=== PATIENT | female | born 1980 | race Caucasian/White ===

== ENCOUNTER 2023-10-07 19:16 | Inpatient (IN) | payer BC, SELFPAY ==
[2023-10-07] VITALS (15 sets, daily range): BP systolic 141–195; BP diastolic 81–112; BMI 24.2; BMI 23.6
[2023-10-07 10:56] LABS: % Basophils 0.6 % (0-2); % Eosinophils 0.3 % (0-6); % Immature Granulocytes 0.3 % (0-0.5); % Lymphocytes 26.3 % (20.5-51.1); % Neutrophils 67.5 % (42.2-75.2); Absolute Lymphocytes 1.7 10^3/uL (1.2-3.4); Absolute Monocytes 0.3 10^3/uL (0.1-0.6); Absolute Neutrophils 4.3 10^3/uL (1.4-6.5); Hematocrit 40.1 % (37.0-47.0); Hemoglobin 14.2 g/dL (12.0-16.0); Mean Corp Hgb Conc. 35.4 g/dL (33.0-37.0); Mean Corpuscular Hgb 29.8 pg (27.0-31.0); Mean Corpuscular Volume 84.2 fL (81.0-99.0); Mean Platelet Volume 10.9 fL (7.4-10.4); Nucleated Red Blood Cells % 0 %; Platelet Count 326 10^3/uL (130-400); Red Blood Cell Count 4.76 10^6/uL (4.20-5.40); Red Cell Dist. Width 12.8 % (11.5-14.5); White Blood Cell Count 6.4 10^3/uL (4.8-10.8)
[2023-10-07 11:13] LABS: ALT (SGPT) 22 U/L (0-35); AST (SGOT) 31 U/L (14-36); Albumin 4.6 g/dl (3.5-5.0); Alkaline Phosphatase 82 U/L (38-126); Blood Urea Nitrogen 22 mg/dl (7-17); Calcium 9.4 mg/dl (8.4-10.2); Carbon Dioxide 21 mmol/L (22-30); Chloride 105 mmol/L (98-107); Glucose 119 mg/dl (70-99); Potassium 3.3 mmol/L (3.5-5.1); Sodium 137 mmol/L (135-145); Total Bilirubin 0.6 mg/dl (0.2-1.3); Total Protein 7.5 g/dl (6.3-8.2); eGFR > 60.00
[2023-10-07 11:24] LABS: Troponin I < 0.012 ng/ml
--- NOTE | 2023-10-07 11:57 | ED.GENMED ---
History of Present Illness
<Yamila Montiel PA-C - Last Filed: 10/07/23 19:11>
General
Chief Complaint: Chest Pain
Source: patient
Exam Limitations: none
Time Seen by Provider: 10/07/23 11:35
Nursing documentation reviewed up to this point in time: agreed with
Travel History
Have you had any contact with someone who has COVID-19?: No
Do you have any symptoms of coronavirus? Fever > 100 degrees, chills, cough, shortness of breath, sore throat, loss of taste or smell, muscle aches, or headache?: No
History of Present Illness
History of Present Illness:
Patient is a 43-year-old female with history hypertension presenting via EMS following episode of substernal chest pain earlier today. Patient was leaving gym after a typical HIT workout around 945 when she noticed severe substernal chest pain with
associated lightheadedness. Patient did not have any chest pain during exercise. She then went into the pharmacy to slate picker a prescription when she became nauseous, sweaty, and describes a near syncopal event. She was able to sit down and felt
better after a few minutes. EMS was called where she received 325mg aspirin in route to hospital. She currently endorses a dull pressure substernally not as severe as episode earlier. No current shortness of breath, back pain,
dizziness/lightheadedness, visual changes, or back pain. Pain is nonpleuritic and nonradiating.
Patient takes amlodipine 5 mg daily for hypertension. She does not check her blood pressures regularly at home.
Patient exercises regularly.
She has a very strong family history of cardiac problems with her brother having a heart attack at the age of 33. Her father and grandfather also suffered cardiac events
Phy Exam
<Yamila Montiel PA-C - Last Filed: 10/07/23 19:11>
Physical Exam
Physical Exam:
General: Somewhat anxious appearing and non-toxic
Vitals: Hypertensive, otherwise stable
HEENT: Atraumatic, normocephalic; pupils equal round reactive to light bilaterally, extraocular muscles intact protecting airway
Neck: appears supple, no jugular venous distention
CV: Regular rate and rhythm, heart sound normal, No evidence of cyanosis
Resp: No evidence of respiratory distress, lungs clear, no accessory muscle use
Abd: Soft, nontender, non-distended
Extremities: No deformities, no evidence fo cyanosis or edema, DP pulses 2+ bilaterally
Neuro: alert and oriented, speech normal, no focal neurological deficits
Psych: Normal affect
Skin: Intact, no rashes
Scores
<Yamila Montiel PA-C - Last Filed: 10/07/23 19:11>
Heart Score for Chest Pain Patients
STEMI patient?: No
History: Moderately Suspicious
ECG: Nonspecific Repolarization
Age: </= 45 years
Risk Factors: 1 or 2 Risk Factors
Troponin: </= Normal Limit
Heart Score for Chest Pain Patients: 3
Heart Score Risk: 2.5% MACE over next 6 weeks
PERC Rule Criteria
Age <50 years: Yes
HR <100 bpm: Yes
Room air oxygen sat >94%: Yes
History of DVT or PE: No
Recent trauma or surgery: No
Hemoptysis: No
Clinical signs suggestive of DVT: No
Considered low risk for PE: Yes
Course
<Yamila Montiel PA-C - Last Filed: 10/07/23 19:11>
Orders/Labs/Results
Orders:
Orders
10/07/23 10:30
Electrocardiogram (*1) Urgent
Reason for Study: Chest Pain
EKG- Treatment ONCE
10/07/23 10:49
Complete Blood Count/With Diff Urgent
Comprehensive Metabolic Panel Urgent
Free T4 Urgent
Glycohemoglobin (HgbA1c) Urgent
HCG, Serum Qualitative Screen Urgent
Comment: ADD
TSH Reflex To Free T4 Urgent
Comment: ADD ON
Troponin I Urgent
10/07/23 12:14
CR Chest - 2 Views Urgent
Comment:
Reason For Exam: chest pain
10/07/23 12:16
EKG- Treatment ONCE
10/07/23 12:40
Add On- LAB Urgent
Tests Added?: TSH w/ reflex T4
10/07/23 13:17
Ibuprofen [Motrin] 400 mg PO NOW STA
10/07/23 13:44
Troponin I Urgent
10/07/23 13:53
Add On- LAB Urgent
Tests Added?: serum qualitative HCG
10/07/23 13:58
D-Dimer Urgent
10/07/23 14:13
Electrocardiogram (*1) Urgent
Reason for Study: Chest Pain
10/07/23 Dinner
Cholesterol Lowering
Cholesterol Lowering: Sodium, 2 Gram
10/07/23 16:07
Amlodipine [Norvasc] 5 mg PO NOW STA
10/07/23 16:14
Potassium Chloride [KCl] 40 meq PO NOW STA
10/07/23 16:20
Amlodipine [Norvasc] 5 mg PO NOW STA
10/07/23 16:21
EKG- Treatment ONCE
10/07/23 16:51
Troponin I Urgent
10/07/23 17:00
Electrocardiogram (*1) Urgent
Reason for Study: Chest Pain
10/07/23 17:10
Amlodipine [Norvasc] 5 mg .ROUTE .STK-MED ONE
10/07/23 17:53
Lorazepam [Ativan] 0.5 mg PO NOW STA
Lorazepam [Ativan] 0.5 mg PO Q4HPRN PRN
Metoprolol [Lopressor] 25 mg PO NOW STA
10/07/23 17:58
Admit Patient As Directed
Co-Sign Provider:
Level of Care: Inpatient admission
Assign to:: IVU
Physician / Group: TYRESE Dejesus
Diagnosis: Chest pain/unstable angina
Reason for Hospitalization: Unstable angina
Expected length of stay greater than two midnights?: Yes
ELOS- Estimated Length of Stay in days: 2
I certify the patient meets the requirements for IP care: Yes
Code Status As Directed
Resuscitation Status: Full Code
Aspirin Chewable [Low Strength Aspirin] 81 mg PO NOW STA
Activity As Directed
Activity Level: Bathroom Privileges
INT (Intravenous Needle Therapy) As Directed
Comment: maintain peripheral IV access
Intake/ Output As Directed
Frequency: Per unit guidelines
Vital Signs As Directed
Frequency: q4h
Weight As Directed
Frequency: Daily
10/07/23 18:00
Enoxaparin Sodium [Lovenox] 40 mg SC QPM
DX Deep Vein Thrombosis Video Routine
10/07/23 20:00
Amlodipine [Norvasc] 5 mg PO BID
Metoprolol [Lopressor] 25 mg PO BID
10/07/23 20:05
Lisinopril [Zestril] 5 mg PO DAILY
10/07/23 22:00
Sertraline HCl [Zoloft] 50 mg PO DAILY
10/07/23 22:58
Troponin I Routine
10/08/23 06:00
Echo 2D MMode Color/Doppler Routine
Reason for Study: chest pain
Electrocardiogram (*1) IN AM
Reason for Study: Chest Pain
Comment: at admission and Q3H for total of 3, to be done with each troponin
NPO
Allow oral meds: Yes
Allow clear liquids: 4hrs prior to procedure
Comment: may have unrestricted clear liquid up to 4 hrs prior to scheduled procedure
Cardiovascular Evaluation IN AM
Troponin I IN AM
10/08/23 08:00
Aspirin Chewable [Low Strength Aspirin] 81 mg PO DAILY
Abnormal Lab Results
10/07/23 10/07/23 10/07/23
10:49 13:44 16:51
MPV 10.9 H fL
(7.4-10.4)
Potassium 3.3 L mmol/L
(3.5-5.1)
Carbon Dioxide 21 L mmol/L
(22-30)
BUN 22 H mg/dl
(7-17)
Glucose 119 H mg/dl
(70-99)
Troponin I 0.037 H* D ng/ml 0.103 H* D ng/ml
TSH (Reflex) 0.35 L uIU/ml
(0.47-4.68)
10/07/23 10:49
10/07/23 10:49
Vital Signs
Initial and Last Documented VS:
Initial Vital Signs
Temp Pulse Resp BP Pulse Ox
98.1 F 75 18 163/98 100
10/07/23 10:37 10/07/23 10:37 10/07/23 10:37 10/07/23 10:37 10/07/23 10:37
Last Documented Vital Signs
Temp Pulse Resp BP Pulse Ox
98.1 F 72 13 189/97 99
10/07/23 10:37 10/07/23 18:45 10/07/23 18:45 10/07/23 18:00 10/07/23 18:45
<Bailee Vergara MD - Last Filed: 10/07/23 13:48>
Orders/Labs/Results
Orders:
Orders
10/07/23 10:30
Electrocardiogram (*1) Urgent
Reason for Study: Chest Pain
EKG- Treatment ONCE
10/07/23 10:49
Complete Blood Count/With Diff Urgent
Comprehensive Metabolic Panel Urgent
Free T4 Urgent
Glycohemoglobin (HgbA1c) Urgent
HCG, Serum Qualitative Screen Urgent
Comment: ADD
TSH Reflex To Free T4 Urgent
Comment: ADD ON
Troponin I Urgent
10/07/23 12:14
CR Chest - 2 Views Urgent
Comment:
Reason For Exam: chest pain
10/07/23 12:16
EKG- Treatment ONCE
10/07/23 12:40
Add On- LAB Urgent
Tests Added?: TSH w/ reflex T4
10/07/23 13:17
Ibuprofen [Motrin] 400 mg PO NOW STA
10/07/23 13:44
Troponin I Urgent
10/07/23 13:53
Add On- LAB Urgent
Tests Added?: serum qualitative HCG
10/07/23 13:58
D-Dimer Urgent
10/07/23 14:13
Electrocardiogram (*1) Urgent
Reason for Study: Chest Pain
10/07/23 Dinner
Cholesterol Lowering
Cholesterol Lowering: Sodium, 2 Gram
10/07/23 16:07
Amlodipine [Norvasc] 5 mg PO NOW STA
10/07/23 16:14
Potassium Chloride [KCl] 40 meq PO NOW STA
10/07/23 16:20
Amlodipine [Norvasc] 5 mg PO NOW STA
10/07/23 16:21
EKG- Treatment ONCE
10/07/23 16:51
Troponin I Urgent
10/07/23 17:00
Electrocardiogram (*1) Urgent
Reason for Study: Chest Pain
10/07/23 17:10
Amlodipine [Norvasc] 5 mg .ROUTE .STK-MED ONE
10/07/23 17:53
Lorazepam [Ativan] 0.5 mg PO NOW STA
Lorazepam [Ativan] 0.5 mg PO Q4HPRN PRN
Metoprolol [Lopressor] 25 mg PO NOW STA
10/07/23 17:58
Admit Patient As Directed
Co-Sign Provider:
Level of Care: Inpatient admission
Assign to:: IVU
Physician / Group: TYRESE Dejesus
Diagnosis: Chest pain/unstable angina
Reason for Hospitalization: Unstable angina
Expected length of stay greater than two midnights?: Yes
ELOS- Estimated Length of Stay in days: 2
I certify the patient meets the requirements for IP care: Yes
Code Status As Directed
Resuscitation Status: Full Code
Aspirin Chewable [Low Strength Aspirin] 81 mg PO NOW STA
Activity As Directed
Activity Level: Bathroom Privileges
INT (Intravenous Needle Therapy) As Directed
Comment: maintain peripheral IV access
Intake/ Output As Directed
Frequency: Per unit guidelines
Vital Signs As Directed
Frequency: q4h
Weight As Directed
Frequency: Daily
10/07/23 18:00
Enoxaparin Sodium [Lovenox] 40 mg SC QPM
DX Deep Vein Thrombosis Video Routine
10/07/23 20:00
Amlodipine [Norvasc] 5 mg PO BID
Metoprolol [Lopressor] 25 mg PO BID
10/07/23 20:05
Lisinopril [Zestril] 5 mg PO DAILY
10/07/23 22:00
Sertraline HCl [Zoloft] 50 mg PO DAILY
10/07/23 22:58
Troponin I Routine
10/08/23 06:00
Echo 2D MMode Color/Doppler Routine
Reason for Study: chest pain
Electrocardiogram (*1) IN AM
Reason for Study: Chest Pain
Comment: at admission and Q3H for total of 3, to be done with each troponin
NPO
Allow oral meds: Yes
Allow clear liquids: 4hrs prior to procedure
Comment: may have unrestricted clear liquid up to 4 hrs prior to scheduled procedure
Cardiovascular Evaluation IN AM
Troponin I IN AM
10/08/23 08:00
Aspirin Chewable [Low Strength Aspirin] 81 mg PO DAILY
Abnormal Lab Results
10/07/23 10/07/23 10/07/23
10:49 13:44 16:51
MPV 10.9 H fL
(7.4-10.4)
Potassium 3.3 L mmol/L
(3.5-5.1)
Carbon Dioxide 21 L mmol/L
(22-30)
BUN 22 H mg/dl
(7-17)
Glucose 119 H mg/dl
(70-99)
Troponin I 0.037 H* D ng/ml 0.103 H* D ng/ml
TSH (Reflex) 0.35 L uIU/ml
(0.47-4.68)
10/07/23 10:49
10/07/23 10:49
Vital Signs
Initial and Last Documented VS:
Initial Vital Signs
Temp Pulse Resp BP Pulse Ox
98.1 F 75 18 163/98 100
10/07/23 10:37 10/07/23 10:37 10/07/23 10:37 10/07/23 10:37 10/07/23 10:37
Last Documented Vital Signs
Temp Pulse Resp BP Pulse Ox
98.1 F 72 13 189/97 99
10/07/23 10:37 10/07/23 18:45 10/07/23 18:45 10/07/23 18:00 10/07/23 18:45
<Yamila Montiel PA-C - Last Filed: 10/07/23 19:11>
MDM/Problems Addressed
Differential Diagnosis Includes:
ACS, muscular strain, PE, PTX, GERD, hypertensive urgency/emergency, anxiety, etc
MDM/Problems Addressed:
Patient is a 43-year-old female presenting for evaluation via EMS for episode of substernal chest pain with associated lightheadedness and near syncopal event earlier morning. This occurred following a workout but patient was symptom-free during
workup. Patient was given 325 mg aspirin and route. Symptoms are somewhat improved but still endorsing dull chest pain. No shortness of breath, dizziness, back pain, lightheadedness, visual changes, weakness. Physical exam as document above.
Patient is somewhat anxious appearing. Heart sounds normal, lungs clear. Patient is hypertensive but otherwise vital signs stable. Patient takes 5 mg amlodipine daily for hypertension. Basic labs were obtained in triage. CBC without any
clinically significant abnormalities. CMP shows mild hypokalemia of 3.3, mild elevation in BUN to 22�suggesting likely dehydration. Otherwise no clinically significant abnormalities. Initial troponin negative. Initial EKG shows heart rate of 71
with some nonspecific T wave abnormalities. Given patient's ongoing symptoms, strong family history�will repeat troponin in 3 hours with EKG. Will get chest x-ray, check TSH. Will monitor blood pressure at
Chest x-ray without any acute cardio or pulmonary process. TSH slightly low but free T4 within normal range. Repeat troponin/EKG pending
Second troponin elevated to 0.037. EKG without any significant changes from prior. Discussed case with cardiology who will come consult on patient emergency department. Spoke to Dr. Dejesus, cardiology document control specialist, think this may be due to
hypertension. Recommends dose of amlodipine, repeat troponin EKG in another 3 hours. If stable or decreased can discharge for outpatient follow-up
Repeat troponin elevated to 0.103. Cardiology aware. Blood pressure remains elevated in the 160s over 100s. Patient remains without chest pain. He will admit for further observation/potential cath in the morning. Admitted to cardiology service,
IVU.
Chronic conditions affecting care:
HTN
Acute Exacerbation and/or Progression of Chronic Illness:
Chest pain, elevated troponins
<Yamila Montiel PA-C - Last Filed: 10/07/23 19:11>
*Radiology
Radiology exam reviewed: preliminary read by ED provider and radiology read reviewed
*Pulse Oximetry
Patient hypoxic: no
*EKG
Interpreted by ED Provider?: Yes
EKG Intrepretation Date: 10/07/23
Interpretation: abnormal
Comparison EKG: no comparison EKG present
Heart Rate: 74
Rate: normal
Rhythm: sinus
[place]: normal axis
Interval: normal interval
QRS Pattern: normal QRS
Ischemia: other (nonspecific t wave changes)
*[place] Interpretation
Rate: normal
Interpretation: normal
Heart Rate: 76
Rhythm: sinus
*Critical Care Note
Total Time (30-74mins, 75-104mins- exclusive of procedures): Not Applicable
ED Attending Note
<Yamila Montiel PA-C - Last Filed: 10/07/23 19:11>
-
Portions of this chart may have been created with voice recognition software.� Occasional wrong word or��sound alike� substitutions may have occurred due to the inherent limitations of voice recognition software.
<Bailee Vergara MD - Last Filed: 10/07/23 13:48>
ED Attending Note
Patient seen and examined by attending physician: Yes
I performed the substantive portion of visit, reviewed & personally made and approve the management plan that is documented in note by myself or KATHIE.: Yes
ED Attending Note:
43-year-old female presents emergency department after an episode of substernal chest pain that occurred approximately 9:[address] after working out at the gym without symptoms. The pain was described as 'dull' and she then developed
associated lightheadedness. She went into a pharmacy and had a near syncopal event that resolved when she sat down and put her head between her legs for a few minutes. Medics were called. ECG was performed. Patient was given 325 of aspirin. On
transport she started to feel better but states that when she arrived here her chest discomfort occurred again and is now 2 out of 10 'dull'. The pain is without radiation, exacerbating, relieving factors. She denies a pleuritic component to the
pain, associated dyspnea, back pain, neck pain, headache, dizziness. Patient notes a strong family history of early cardiac illness, her last stress test was in 2019 and was normal. Patient exercises 5 days a week and is compliant with her
hypertensive medication. On exam, heart regular rate and rhythm, no murmurs. Lungs CTA. No leg swelling. ECG with nonspecific T wave flattening. Troponin normal. Workup in progress, likely chest pain close follow-up.
Discharge Plan
Departure
Patient Disposition: Admit
Date of Disposition: 10/07/23
Time of Disposition: 18:04
Admit to: IVU
Presentation/result/management discussed w/ accepting /: Dr. Dejesus
Discharge Problem:
Chest pain, Elevated troponin
Prescriptions:
No Action
amlodipine 5 mg Tablet
5 mg PO HS
ibuprofen [Motrin IB] 200 mg Tablet
600 mg PO DAILYPRN PRN (Reason: mild pain)
dextroamphetamine-amphetamine 10 mg Capsule,Extended Release 24hr
10 mg PO DAILY
Patient Comments:
10/07/2023, pt. filled this med. on 09/17/2023 for 30 capsules according to PDMP.
sertraline 50 mg Tablet
50 mg PO HS
Nutrafol Hair Supplement
4 cap PO DAILY
melatonin
2 gummy PO HS
Patient Comments:
10/07/2023, 2 gummies = 3 mg.
Referrals:
Lul Maradiaga DO [Family Provider] -
Interventions
Interventions:
*Risk Screen - Suicide Last Done: 10/07/23 10:37
*General Assessment Last Done: 10/07/23 12:04
*Neglect/Abuse Screening Last Done: 10/07/23 10:37
*ED COVID-19 Vaccine History Last Done: 10/07/23 10:37
ED- Cardiac Assessment Last Done: 10/07/23 12:07
[2023-10-07] MEDS: MOTRIN 400 MG PO (13:35)
[2023-10-07 14:20] LABS: Troponin I 0.037 ng/ml
[2023-10-07 14:49] LABS: TSH Reflex To Free T4 0.35 uIU/ml (0.47-4.68)
[2023-10-07 15:01] LABS: D-Dimer < 0.27 ug/mlFEU (0.00-0.50)
[2023-10-07 15:05] LABS: HCG, Serum Qualitative Screen Negative
[2023-10-07 15:14] LABS: Free T4 1.24 ng/dl (0.78-2.19)
--- NOTE | 2023-10-07 15:18 | CON.CAR ---
Addendum entered and electronically signed by Josemanuel Dejesus MD 10/07/23 17:58:
I saw and examined the patient.
The Auto Glass Technician's note was reviewed and I agree with the note.
Comment:
GEN: No distress, awake, Ox3
HEENT: supple, anicteric, mmm
LUNGS: CTA, no wheezes/rales
CV: Reg, S1/S2, 1/6 syst LSB, no gallop
ABD: soft, BS+, NT/ND
EXT: No edema
NEURO: Gross non-focal
SKIN: No rash
Plan:
She has a past medical history of hypertension, anxiety, ADHD and asthma who presented today to the emergency room after an exercise workout with chest pressure, lightheadedness, and near syncope. She felt fine during her class but 10 minutes later
started having chest tightness with lightheadedness. She felt nauseous and sweaty. She came to the emergency room where her blood pressure was markedly elevated at 174/100. EKG revealed sinus rhythm with nonspecific T wave abnormalities. Chest
x-ray revealed a normal mediastinum and D-dimer was negative. Cardiac troponins were initially normal then increased to 0.037 and then 0.1. She is currently pain-free.
The etiology of her abnormal troponin remains unclear. She currently is pain-free.
This could be hypertensive emergency versus acute coronary syndrome.
Continue aspirin 81 mg daily. Start metoprolol 25 mg p.o. twice daily. Increase Norvasc to 5 mg p.o. twice daily.
Check lipids and likely add statin in AM.
Will check echocardiogram. With chest pains and abnormal troponin we likely will proceed with cardiac cath in a.m.
If she has further chest pains we will add heparin.
We did discuss her Adderall therapy and I do think if possible she should discontinue this long-term.
Original Note:
Consultation
Consultation Request
Date/Time Consultation Requested: 10/07/2023
Date/Time Consultation Performed: 10/07/2023
Requesting Provider: Yamila Montiel PA-C/Dr. Vergara
Performing Provider: Jo Barron PA-C for Dr. Dejesus
Reason for Consultation: Chest pain, hypertensive urgency
Medical History
-
History of Present Illness:
Patient is a 43-year-old female with past medical history of hypertension, anxiety, ADHD, asthma who presents to emergency department 10/07/2023 with complaints of chest pressure, dizziness lightheadedness and headache. Patient reports she went to
the gym this morning and worked out participating in a HIT class without chest pain shortness of breath or dizziness. After class she was driving home when she developed acute onset of substernal chest pressure associated with lightheadedness that
lasted several minutes then resolved.. She stopped at a pharmacy to greens picker prescriptions and while in the pharmacy her chest pressure and dizziness/lightheadedness returned but more severe this time. She felt nauseous and sweaty like she was
going to pass out and had urge to have a BM. She sat down on the floor and heard muffled voices/sounds around her. 911 was called. She was provided aspirin in the ambulance. On arrival to ED BP 174/101. EKG showed sinus rhythm with nonspecific T
wave abnormality. Chest x-ray showed no acute abnormality. D-dimer was negative. Potassium was 3.3. Troponin initially was 0.012-second troponin 0.037. TSH 0.35 with free T41.24.
She reports she had a similar episode of dizziness lightheadedness and hypertensive urgency in 2018 where she almost passed out. She was placed on amlodipine. She had a stress echo which she reports was normal. In general she is very active and
exercises 4-5 times a week and high intensity training classes without concerning cardiac symptoms including chest pain, shortness of breath, dizziness or lightheadedness.
Past medical history:
Hypertension
Asthma
Anxiety
ADHD
Family history of premature heart disease
Past Medical History
Past Medical History: Other (See HPI)
Past Surgical History: (X 2), Urological (Lithotripsy) and Other (Rhinoplasty)
Social History
Tobacco: Non-Smoker
Alcohol: Occasional (socially)
Drug: None
Personal:
Living: With Family
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
Family History
Family History: Other (Father had AL at 49 and CABG, brother had first AL at 32 with stent, paternal grandfather had AL in 30s and CABG in 70s. Mother has hypertension and hyperlipidemia)
Allergies / Home Medications
Allergy/AdvReac Type Severity Reaction Status Date / Time
No Known Allergies Allergy Verified 10/07/23 10:37
Medication Instructions Recorded Confirmed Type
Nutrafol Hair Supplement 4 cap PO DAILY 10/07/23 10/07/23 History
amlodipine 5 mg tablet 5 mg PO HS 10/07/23 10/07/23 History
dextroamphetamine-amphetamine ER 10 mg PO DAILY 10/07/23 10/07/23 History
10 mg 24hr capsule,extend release
ibuprofen 200 mg tablet (Motrin IB) 600 mg PO DAILYPRN PRN mild pain 10/07/23 10/07/23 History
melatonin 2 gummy PO HS 10/07/23 10/07/23 History
sertraline 50 mg tablet 50 mg PO HS 10/07/23 10/07/23 History
Review of Systems
-
History Source: Patient
All other systems: Negative unless noted
Physical Exam
Vital Signs
Temp Pulse Resp BP Pulse Ox
98.1 F 77 16 160/98 100
10/07/23 10:37 10/07/23 14:15 10/07/23 14:15 10/07/23 14:00 10/07/23 14:15
GEN: No distress, awake, Ox3
HEENT: supple, anicteric, mmm
LUNGS: CTA, no wheezes/rales
CV: Reg, S1/S2, no murmur, rub or gallop
ABD: soft, BS+, NT/ND
EXT: No edema, clubbing or cyanosis
NEURO: Gross non-focal
SKIN: No rash, warm, dry, pink
Lab Results
10/07/23 10:49
10/07/23 10:49
Troponin I 0.037 ng/ml H* D 10/07/23 13:44
Impression / Plan
-
PCP: [facility]
[employer]: None prior to arrival
Impression:
Presents 10/07/2023 with chest pain, lightheadedness, headache
Near syncope
Hypertensive urgency
Abnormal troponin
Hypertension
Asthma
Anxiety
ADHD
Family history of premature heart disease
Plan:
Patient is a 43-year-old female with past medical history of hypertension, anxiety, ADHD, asthma who presents to emergency department 10/07/2023 with complaints of chest pressure, dizziness lightheadedness and headache. Patient reports she went to
the gym this morning and worked out participating in a HIT class without chest pain shortness of breath or dizziness. After class she was driving home when she developed acute onset of substernal chest pressure associated with lightheadedness that
lasted several minutes then resolved.. She stopped at a pharmacy to greens picker prescriptions and while in the pharmacy her chest pressure and dizziness/lightheadedness returned but more severe this time. She felt nauseous and sweaty like she was
going to pass out and had urge to have a BM. She sat down on the floor and heard muffled voices/sounds around her. 911 was called. She was provided aspirin in the ambulance. On arrival to ED BP 174/101. EKG showed sinus rhythm with nonspecific T
wave abnormality. Chest x-ray showed no acute abnormality. D-dimer was negative. Potassium was 3.3. Troponin initially was 0.012-second troponin 0.037. TSH 0.35 with free T41.24.
She reports she had a similar episode of dizziness lightheadedness and hypertensive urgency in 2018 where she almost passed out. She was placed on amlodipine. She had a stress echo which she reports was normal. In general she is very active and
exercises 4-5 times a week and high intensity training classes without concerning cardiac symptoms including chest pain, shortness of breath, dizziness or lightheadedness.
-Presents 10/07/2023 with chest pain, lightheadedness, headache.
-Hypertensive urgency, initial BP 174/101 remains elevated on numerous repeat evaluations lowest 160/98, most recent 177/106.
-Give Amlodipine 5 mg x 1 now. Increase outpt Amlodipine to 10 mg which she was reported she tolerated in the past
-Abnormal troponin, initial 0.012, repeat 0.037. Would repeat 3rd troponin. Suspect non-ischemic myocardial injury secondary to hypertensive urgency.
-ECG sinus rhythm with non-specific T wave abnormality. Currently CP free.
-If BP improves with amlodipine and 3rd troponin not significantly higher can d/c and plan for outpatient follow up, stress test and echo.
-Would recommend patient check BP daily and call our office if BP remains greater than 140/86. 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
-Takes Adderall for ADHD. This may be contributing to her HTN. Would consider weaning off Adderall
Data Reviewed
-
EKG: Report Reviewed by me, Discussed with Physician, Discussed with Nurse, Discussed with Patient and Discussed with Family
Radiology: Report Reviewed by me, Discussed with Physician, Discussed with Nurse, Discussed with Patient and Discussed with Family
Labs: Labs Reviewed by me, Discussed with Physician, Discussed with Nurse, Discussed with Patient and Discussed with Family
Old Records: Reviewed
[2023-10-07] MEDS: NORVASC PO (16:21)
[2023-10-07] MEDS: KCL 40 MEQ PO (16:21)
[2023-10-07] MEDS: NORVASC 5 MG PO ×2 (17:11→20:13)
[2023-10-07 17:30] LABS: Troponin I 0.103 ng/ml
[2023-10-07] MEDS: LOPRESSOR 25 MG PO ×2 (18:28→22:20)
[2023-10-07] MEDS: ATIVAN 0.5 MG PO ×2 (18:28→22:20)
[2023-10-07] MEDS: LOW STRENGTH ASPIRIN 81 MG PO (18:55)
[2023-10-07] MEDS: LOVENOX 40 MG SC (20:12)
[2023-10-07] MEDS: ZESTRIL 5 MG PO (20:13)
--- NOTE | 2023-10-07 21:08 | PTCARENOTE ---
received patient from the ED at approx 2000. AAOx3. independent. denies any pain/sob. anxious-prn ativan given in the ED. HR SR 60s. elevated bp-180/112. ordered medications given, will recheck. reviewed plan of care with patient and spouse.
answered all questions. NPO at midnight. call pina within reach.
[2023-10-07] MEDS: ZOLOFT 50 MG PO (22:20)
--- NOTE | 2023-10-07 23:06 | PTCARENOTE ---
improved BP- 141/81. HR 60s. denies any cp.
[2023-10-07 23:42] LABS: Troponin I 0.116 ng/ml
[2023-10-08] VITALS (14 sets, daily range): BP systolic 93–134; BP diastolic 59–93; BMI 23.4
[2023-10-08 05:53] LABS: HDL Cholesterol 52 mg/dl; LDL Cholesterol, Calculated 157 mg/dl; Total Cholesterol 240 mg/dl (50-199); Triglyceride 159 mg/dl (10-149); Very Low Density Lipoprotein 31 mg/dl (0-30)
[2023-10-08 06:00] LABS: Troponin I 0.098 ng/ml
[2023-10-08] MEDS: ATIVAN 0.5 MG PO ×3 (06:21→20:29)
[2023-10-08] MEDS: NORVASC 5 MG PO ×2 (07:50→19:25)
[2023-10-08] MEDS: LOPRESSOR 25 MG PO ×2 (07:50→19:25)
[2023-10-08] MEDS: LOW STRENGTH ASPIRIN 81 MG PO (07:50)
[2023-10-08] MEDS: ZESTRIL PO (07:51)
[2023-10-08] MEDS: ZOLOFT PO (07:52)
--- NOTE | 2023-10-08 07:55 | PTCARENOTE ---
report given to warehouse general laborer, patient is nervous, am meds given as ordered. +
[2023-10-08 08:46] LABS: ACT-LR - POC 253 Seconds (116-155)
[2023-10-08 08:53] LABS: ACT-LR - POC 258 Seconds (116-155)
[2023-10-08 09:14] LABS: ACT-LR - POC 277 Seconds (116-155)
[2023-10-08 09:24] LABS: Glycohemoglobin (HgbA1c) 6.1 % (4.0-5.6)
--- NOTE | 2023-10-08 09:29 | PTCARENOTE ---
patient returned from quality control lab technician with right radial R band intact, distal pulse palpable. monitor shows NSR, VSS, patient has no complaints. EKG post done.
--- NOTE | 2023-10-08 09:43 | CM ---
Priced Brilinta thru patient's pharmacy plan, [facility]/[phone]. Pt. has an anticipated $0 co pay for 30 d supply.
Call to patient's pharmacy, [facility] [address], they do have the Brilinta in stock.
--- NOTE | 2023-10-08 09:45 | ITS.CL.CATH ---
Director Airport Operations - Catheterization
Cardiac Catheterization
Procedure Report:
LEFT HEART CATH AND CORONARY INTERVENTION
Date of Procedure: October 08, 2023
Referring: Dr. Nik Dejesus
PROCEDURES:
1. Left heart catheterization with coronary and single-plane left ventriculography
2. Successful stenting of the mid right coronary artery with a 2.25 x 18 mm Xience stent that was postdilated with a 2.5 mm noncompliant balloon
INDICATION: This is a 43-year-old female with a past medical history notable for hypertension, anxiety, ADHD, and asthma. She presented to [facility] emergency department on 10/07/2023 following development of chest pain after working out.
She felt well while exercising but developed significant chest tightness and lightheadedness approximately 10 minutes later. She felt nauseated and sweaty. Her blood pressure was quite elevated upon arrival to the emergency department and her
troponin became mildly elevated peaking at 0.116 ng/mL. She is now referred for coronary angiography.
ACCESS: Right radial artery, 5 Egyptian sheath using ultrasound guidance.
HEMODYNAMICS (mmHg):
AO (s/d) : 112/74
LV (s/d) : 107/4
LVEDP : 15
CORONARY FINDINGS
Dominance: Right
LEFT MAIN: Normal
LEFT ANTERIOR DESCENDING: The LAD arises normally from the left main and runs in the anterior interventricular groove. The first diagonal branch arises proximally from the LAD and has a 60% proximal stenosis. The remainder of the LAD has luminal
irregularities.
CIRCUMFLEX: The circumflex is a medium caliber nondominant vessel. The distal circumflex has a 50% stenosis between 2 of the more distal posterolateral branches.
RIGHT CORONARY: The right coronary artery is a dominant vessel that has a 95% stenosis in its mid to distal portion. The PDA has minor irregularities.
VENTRICULOGRAPHY: Left ventriculography was performed in an MADSEN projection. The digital single-plane left ventricular ejection fraction is estimated at 60%. No regional wall motion abnormalities
ANGIOPLASTY PROCEDURE DETAIL: Upon review of the diagnostic catheterization films the decision was made to proceed with percutaneous revascularization of the high-grade mid to distal RCA stenosis. The existing 5 Egyptian sheath was removed and
upsized for a 6 Egyptian radial sheath. Intravenous heparin was administered and the ACT was monitored throughout the procedure. A 180 mg loading dose of ticagrelor was administered. The origin of the RCA was cannulated with a 6 Egyptian JR4 guiding
catheter and a BMW guidewire across the stenosis in the mid to distal RCA and the tip of the wire was advanced into the PDA. We initially attempted to perform primary stenting of the high-grade stenosis with a 2.25 x 18 mm Xience stent.
Unfortunately, the stent would not cross and was removed. Predilation was then performed with a 2 mm Trek balloon. The lesion proved somewhat fibrotic and resistant to balloon dilation and required higher pressures to achieve good balloon
expansion. The 2.25 x 18 mm Xience stent then easily crossed the mid to distal RCA stenosis and the stent was implanted at nominal pressures. The stent was postdilated with a 2.5 mm noncompliant balloon to 18 mark with a nice angiographic result
RADIATION SUMMARY: Fluoro Time (min): 12.9, Dose (mGy): 264, DAP (Gy.cm2) : 21.6
CONCLUSIONS
1. Acute coronary syndrome and non-ST segment elevation myocardial infarction with high-grade stenosis in the mid to distal right coronary artery treated with balloon angioplasty and stenting with a 2.25 x 18 mm Xience stent that was postdilated to
high pressures with a 2.5 mm noncompliant balloon
2. Preserved left ventricular systolic function
RECOMMENDATIONS
1. Uninterrupted dual antiplatelet therapy for 12 months
2. High intensity lipid-lowering
3. Will need to work on excellent blood pressure control
Copy to: [facility]
--- NOTE | 2023-10-08 11:04 | CM ---
CM following for DC planning needs.
Met w/ patient at bedside to complete initial assessment.
Pt. resides w/ spouse, children in a private, multi level home.
Functionally, patient is indep. w/ ADLS, mobility without use of any assisted device.
Notified patient of anticipated Brilinta cost. Will provide coupons just in case estimate was inaccurate.
Anticipated DC plan is home without needs.
Will follow.
--- NOTE | 2023-10-08 13:22 | PTCARENOTE ---
patient requested Ativan, Ativan po given as ordered.
[2023-10-08 13:41] LABS: ACT-LR - POC > 397 Seconds (116-155)
--- NOTE | 2023-10-08 16:00 | PTCARENOTE ---
Echo completed at bedside
[2023-10-08] MEDS: LIPITOR 80 MG PO (17:38)
[2023-10-08] MEDS: LOVENOX 40 MG SC (17:38)
[2023-10-08] MEDS: BRILINTA 90 MG PO (19:25)
[2023-10-08] MEDS: ZOLOFT 50 MG PO (20:29)
--- NOTE | 2023-10-08 21:30 | PTCARENOTE ---
Patient ambulating self in room, and denies any dizziness. VSS, and sating 98% RA. Tele shows SR-bradycardia w/ occasional PVCs. HR in the 50-70's. Denies any SOB or pain. Right radial dressing C/D/I, patient educated on activity restriction.
Patient aware of POC, call pina in reach.
[2023-10-09 04:35] VITALS: BP 119/74
[2023-10-09] MEDS: TUMS EX (EXTRA STRENGTH) CHEWABLE 2 TABLET PO (04:50)
[2023-10-09] MEDS: ATIVAN 0.5 MG PO (04:50)
[2023-10-09 04:56] VITALS: BMI 23.9
[2023-10-09 05:33] LABS: Hematocrit 37.6 % (37.0-47.0); Hemoglobin 12.9 g/dL (12.0-16.0); Mean Corp Hgb Conc. 34.3 g/dL (33.0-37.0); Mean Corpuscular Hgb 29.6 pg (27.0-31.0); Mean Corpuscular Volume 86.2 fL (81.0-99.0); Mean Platelet Volume 11.2 fL (7.4-10.4); Platelet Count 321 10^3/uL (130-400); Red Blood Cell Count 4.36 10^6/uL (4.20-5.40); Red Cell Dist. Width 13.2 % (11.5-14.5); White Blood Cell Count 11.7 10^3/uL (4.8-10.8)
[2023-10-09 05:41] LABS: Blood Urea Nitrogen 24 mg/dl (7-17); Calcium 8.9 mg/dl (8.4-10.2); Carbon Dioxide 23 mmol/L (22-30); Chloride 108 mmol/L (98-107); Estimated Creatinine Clearance 69 ml/min; Glucose 95 mg/dl (70-99); Potassium 4.1 mmol/L (3.5-5.1); Sodium 136 mmol/L (135-145); eGFR > 60.00
[2023-10-09 06:52] VITALS: BP 116/68
--- NOTE | 2023-10-09 07:34 | W.PN.CARDCBS ---
Addendum entered and electronically signed by Jo Barron PA-C 10/09/23 16:30:
dictated d/c summary#[id number]
Addendum entered and electronically signed by Zackery Hawkins MD 10/09/23 08:44:
She feels very well offers no complaints
allergies: None
Inpatient Meds: Reviewed
Outpatient medications: Amlodipine 5 mg a day, Adderall, sertraline
PMH/PSH/SH/FH: Reviewed
Review of systems: Negative except as above
116/68, pulse 79, respirate 16, afebrile, blood pressure in the 90s
No distress, head neck exam unremarkable, lungs clear, regular rate and rhythm, abdomen benign, extremities without clubbing sinus edema distal pulses intact neuro nonfocal
White count 11.7, hemoglobin 12.9, platelets okay, BUN and creatinine 24 and 0.9, peak troponin 0.1, total cholesterol 240, TSH 0.35
Echo normal
EKG QT interval is top normal
Impression:
ACS with RCA PCI
Hypercholesterolemia
Hypertension
ADHD
Asthma
Plan:
Optimization of risk factors and GDMT
See discharge instructions
Okay for discharge
Original Note:
Today's Communication / Plan
-
Status post RCA GINA 10/08/2023
No further cardiac symptoms.
Blood pressure stable on Toprol, lisinopril, amlodipine
New to atorvastatin
Dual antiplatelet therapy x 1 year
Stable for discharge
Outpatient cardiac follow-up arranged
Impression / Plan
-
PCP: [facility]
Emergency Registrar: None prior to arrival
Impression:
Presents 10/07/2023 with chest pain, lightheadedness, headache
Near syncope
Hypertensive urgency
Abnormal troponin
NSTEMI, peak trop 0.116
CAD
s/p mid RCA�2.25 x 18 mm Xience stent (10/08/2023)
Hypertension
Asthma
Anxiety
ADHD
Family history of premature heart disease
Echo 10/08/2023: EF 55 to 60%. Normal regional wall motion. No significant valvular disease.
Cardiac cath 10/08/2023: LM: Normal. LAD: LI, 60% proximal D1 stenosis. Circumflex: 50% distal stenosis between [address] branches[address] RCA: 95% mid stenosis s/p�2.25 x 18 mm Xience stent
Plan:
Presented 10/07/2023 with chest pain, lightheadedness, headache.
CAD/NSTEMI
-Peak troponin 0.116
-Status post mid RCA 2.25 x 18 mm Xience stent 10/08/2023
-Continue DAPT with Brilinta and aspirin x 1 year
-Continue Toprol, amlodipine, lisinopril, high-dose atorvastatin
-Echo with preserved ejection fraction and normal regional wall motion as noted above
-Cardiac rehab
-Patient works as a labor and delivery nurse. Will keep out of work until patient is seen in follow-up 10/28/2023. Letter provided.
Hyperlipidemia
-Pre-statin lipids TC 240, HDL 52, LDL 157, triglycerides 159.
-New to high-dose atorvastatin 80 mg daily.
-Hemoglobin A1c 6.1%, Heart healthy diet. Recheck hemoglobin A1c in 3 months.
Hypertensive urgency, initial BP 174/101
-Blood pressure now controlled on Toprol, lisinopril 5 mg (both new) and Amlodipine.
-Continue to monitor at home
-H/o ADHD prior to admission was on Adderall. Given CAD and HTN. Now off. Would consider alternative
Abnormal TSH, TSH 0.35 with free T4 1.24. Would consider rechecking as outpt but will defer to primary care physician
Admit data/HPI 10/07/2023:
Patient is a 43-year-old female with past medical history of hypertension, anxiety, ADHD, asthma who presents to emergency department 10/07/2023 with complaints of chest pressure, dizziness lightheadedness and headache. Patient reports she went to
the gym this morning and worked out participating in a HIT class without chest pain shortness of breath or dizziness. After class she was driving home when she developed acute onset of substernal chest pressure associated with lightheadedness that
lasted several minutes then resolved.. She stopped at a pharmacy to oyster picker prescriptions and while in the pharmacy her chest pressure and dizziness/lightheadedness returned but more severe this time. She felt nauseous and sweaty like she was
going to pass out and had urge to have a BM. She sat down on the floor and heard muffled voices/sounds around her. 911 was called. She was provided aspirin in the ambulance. On arrival to ED BP 174/101. EKG showed sinus rhythm with nonspecific T
wave abnormality. Chest x-ray showed no acute abnormality. D-dimer was negative. Potassium was 3.3. Troponin initially was 0.012-second troponin 0.037. TSH 0.35 with free T41.24.
She reports she had a similar episode of dizziness lightheadedness and hypertensive urgency in 2019 where she almost passed out. She was placed on amlodipine. She had a stress echo which she reports was normal. In general she is very active and
exercises 4-5 times a week and high intensity training classes without concerning cardiac symptoms including chest pain, shortness of breath, dizziness or lightheadedness.
Progress Note - Emergency Registrar
Subjective
Date of Service: October 09, 2023
Patient seen and examined. Patient reports he is feeling well. No further chest pain, shortness of breath, dizziness or lightheadedness. Right wrist mild tenderness but no pain.
Objective
Labs:
10/09/23 04:56
10/09/23 04:56
Labs
Hgb 12.9 g/dL (12.0-16.0) 10/09/23 04:56
Hct 37.6 % (37.0-47.0) 10/09/23 04:56
Plt Count 321 10^3/uL (130-400) 10/09/23 04:56
Sodium 136 mmol/L (135-145) 10/09/23 04:56
Potassium 4.1 mmol/L (3.5-5.1) 10/09/23 04:56
BUN 24 mg/dl (7-17) H 10/09/23 04:56
Creatinine 0.9 mg/dL (0.6-1.0) 10/09/23 04:56
Glucose 95 mg/dl (70-99) 10/09/23 04:56
Troponins
10/07/23 10/07/23 10/07/23
10:49 13:44 16:51
Troponin I < 0.012 0.037 H* D 0.103 H* D
10/07/23 10/07/23 10/08/23
17:00 23:02 05:04
Troponin I Cancelled 0.116 H* 0.098 H*
Vital Signs and I&O:
Vital Signs
Temp Pulse Resp BP Pulse Ox
98.4 F 74 16 119/74 96
10/09/23 06:50 10/09/23 06:50 10/09/23 06:50 10/09/23 04:35 10/09/23 06:50
Vital Signs
Temp Pulse Resp BP Pulse Ox
98.4 F 74 16 119/74 96
10/09/23 06:50 10/09/23 06:50 10/09/23 06:50 10/09/23 04:35 10/09/23 06:50
Intake & Output
10/07/23 10/08/23 10/09/23 10/10/23
06:59 06:59 06:59 06:59
Intake Total 400 / 400 825 / 825
Balance 400 / 400 825 / 825
Physical Exam
Physical Exam
GEN: No distress, awake, Ox3
HEENT: supple, anicteric, mmm
LUNGS: CTA, no wheezes/rales
CV: Reg, S1/S2, no murmur, rub or gallop
ABD: soft, BS+, NT/ND
EXT: No edema, clubbing or cyanosis; right radial access site C/D/I, no hematoma and good radial pulse
NEURO: Gross non-focal
SKIN: No rash, warm, dry, pink
[2023-10-09] MEDS: LOW STRENGTH ASPIRIN 81 MG PO (08:13)
[2023-10-09] MEDS: NORVASC 5 MG PO (08:13)
[2023-10-09] MEDS: ZESTRIL 5 MG PO (08:14)
[2023-10-09] MEDS: BRILINTA 90 MG PO (08:14)
[2023-10-09] MEDS: TOPROL XL 25 MG PO (08:18)
--- NOTE | 2023-10-09 08:53 | W.DS.TRANS ---
DC Summary - University Teacher
-
Discharge Instructions:
Discharge Diagnosis/Procedures NSTEMI, Angioplasty with stent to Right Coronary
artery
Diet Low Cholesterol,Diabetic, Carb Controlled
Driving Restrictions No driving for 24 hours
Other Services Cardiac Rehab
Stop these medications: STOP adderall- contraindicated in CAD/heart
disease
Instructions:
Stand-Alone Forms: DC Instructions- Cath/EP Lab
Changes to Home Medications: Yes
Discharge Medications:
DC Medications w/original date entered in [facility]
Nutrafol Hair Supplement 4 cap PO DAILY Supplement 10/07/23
amlodipine 5 mg tablet 5 mg PO HS Blood Pressure 10/07/23
melatonin 2 gummy PO HS Sleep 10/07/23
sertraline 50 mg tablet 50 mg PO HS Mental Health/Anxiety 10/07/23
aspirin 81 mg chewable tablet (Children's Aspirin) 81 mg PO DAILY Blood clot prevention/tx #1 tab 10/09/23
atorvastatin 40 mg tablet 80 mg PO QPM High cholesterol #30 tabs 10/09/23
lisinopril 5 mg tablet 5 mg PO DAILY #30 tabs 10/09/23
metoprolol succinate 25 mg tablet,extended release 24 hr 25 mg PO DAILY Heart disease/condition #30 tabs 10/09/23
ticagrelor 90 mg tablet (Brilinta) 90 mg PO BID Blood clot prevention/tx #60 tabs 10/09/23
Home Medication Changes
Stop Adderall
New to ASA 81 mg, Atorvastatin, Lisinopril, Toprol and Brilinta
Pending Results: No
Total time spent discharging patient (in min): 41
--- NOTE | 2023-10-09 10:12 | PTCARENOTE ---
Assumed care of pt from night RN. Pt received awake and alert, Ox3. VSS, CM shows NSR 70-80's, POX 96% on RA. Right radial band ANIMAL SCIENTIST, slightly ecchymotic with good CMS throughout arm. Pt denies any pain or discomfort, for D/C today.
--- NOTE | 2023-10-09 12:03 | CM ---
Pt. for DC today to home.
No identified DC needs.
Plan is for home without needs.
--- NOTE | 2023-10-09 12:57 | PTCARENOTE ---
All D/C info reviewed with pt and spouse, all questions answered. Pt D/C'd home with spouse.
== END 2023-10-09 12:51 | disposition home or self-care (01) | DRG 322 ==
LOC: IVU 19:16
PROVIDERS: Internal Medicine Interventional Cardiology; Nurse Practitioner Adult Health; Physician Assistant; ADMITTING PHYSICIAN Internal Medicine Cardiovascular Disease; EMERGENCY PHYSICIAN Emergency Medicine; FAMILY PHYSICIAN Family Medicine
PROC: B2111ZZ Fluoroscopy of Multiple Coronary Arteries using Low Osmolar Contrast (ICD-10-PCS; 2023-10-08)
PROC: B2151ZZ Fluoroscopy of Left Heart using Low Osmolar Contrast (ICD-10-PCS; 2023-10-08)
PROC: 4A023N7 Measurement of Cardiac Sampling and Pressure, Left Heart, Percutaneous Approach (ICD-10-PCS; 2023-10-08)
PROC: 027034Z Dilation of Coronary Artery, One Artery with Drug-eluting Intraluminal Device, Percutaneous Approach (ICD-10-PCS; 2023-10-08)
DX: I21.4 Non-ST elevation (NSTEMI) myocardial infarction (principal); I10 Essential (primary) hypertension; I25.110 Atherosclerotic heart disease of native coronary artery with unstable angina pectoris; E87.6 Hypokalemia; F41.9 Anxiety disorder, unspecified; F90.9 Attention-deficit hyperactivity disorder, unspecified type; J45.909 Unspecified asthma, uncomplicated; I16.0 Hypertensive urgency; E78.00 Pure hypercholesterolemia, unspecified; R94.6 Abnormal results of thyroid function studies; Z79.82 Long term (current) use of aspirin; Z79.899 Other long term (current) drug therapy; Z82.49 Family history of ischemic heart disease and other diseases of the circulatory system
CPT/HCPCS: 71046; 80048; 80053; 80061; 83036; 84439; 84443; 84484; 84703; 85025; 85027; 85347; 85379; 93005; 93306; 93458; 99285; C1725; C1769; C1874; C1894; C9600; Q9967

== ENCOUNTER 2023-10-28 11:38 | Outpatient (RCR) | payer BC, SELFPAY | END 2023-10-28 23:59 | disposition home or self-care (01) | LOC: CRHB 11:38 | PROVIDERS: ATTENDING PHYSICIAN Internal Medicine Interventional Cardiology | DX: I25.10 Atherosclerotic heart disease of native coronary artery without angina pectoris (principal); I25.2 Old myocardial infarction; Z95.5 Presence of coronary angioplasty implant and graft | CPT/HCPCS: 93797; 93798 ==

== ENCOUNTER 2023-11-27 11:16 | Outpatient (RCR) | payer BC, SELFPAY | END 2023-11-27 23:59 | disposition home or self-care (01) | LOC: CRHB 11:16 | PROVIDERS: ATTENDING PHYSICIAN Internal Medicine Cardiovascular Disease | DX: I21.4 Non-ST elevation (NSTEMI) myocardial infarction (principal); Z95.5 Presence of coronary angioplasty implant and graft | CPT/HCPCS: 93797; 93798 ==

== ENCOUNTER 2023-12-04 11:49 | Outpatient (RCR) | payer BC, SELFPAY | END 2023-12-04 23:59 | disposition home or self-care (01) | LOC: CRHB 11:49 | PROVIDERS: ATTENDING PHYSICIAN Internal Medicine Cardiovascular Disease; FAMILY PHYSICIAN Family Medicine | DX: I21.4 Non-ST elevation (NSTEMI) myocardial infarction (principal); I25.10 Atherosclerotic heart disease of native coronary artery without angina pectoris; Z95.5 Presence of coronary angioplasty implant and graft | CPT/HCPCS: 93797; 93798 ==

== ENCOUNTER 2024-05-30 16:53 | Emergency (ER) | payer BC, SELFPAY ==
[2024-05-30 16:59] VITALS: BP 164/96
--- NOTE | 2024-05-30 17:01 | ED.PDOC.TRB ---
ED Provider Triage
-
Patient seen by provider in Triage?: Seen in Triage
Attestation: A medical screening examination has been initiated by a qualified medical provider. Based on the assessment performed at this time, it has been determined that an emergent medical condition may exist and the patient has been informed
that further medical evaluation and possible additional diagnostic testing may be needed.
HPI: 43yoF here with chest pain x 2 hours. Feels like a pressure in chest with palpitations. Hasn't been feeling right since yesterday. Didn't sleep last night due to nausea. Hx of NSTEMI in October and had stent placed.
GENERAL: Alert , in no apparent distress
EYE: No visual abnormalities.
NECK: Trachea midline
ENT: No visible abnormalities.
LUNGS: No acute respiratory distress
NEUROLOGICAL: Alert and oriented
SKIN: Skin intact. No visible changes.
MUSCULOSKELETAL: Moving extremities normally
PSYCH: Normal and appropriate interaction.
This is a medical evaluation conducted in person to initiate diagnostic evaluation and provide initial therapeutics. Please see further documentation by the treating clinician.
Cardiac labs, EKG, and CXR ordered.
[2024-05-30 17:37] LABS: % Basophils 0.5 % (0-2); % Eosinophils 1.2 % (0-6); % Immature Granulocytes 0.4 % (0-0.5); % Lymphocytes 24.8 % (20.5-51.1); % Monocytes 6.4 % (1.7-9.3); % Neutrophils 66.7 % (42.2-75.2); Absolute Eosinophils 0.1 10^3/uL (0-0.7); Absolute Lymphocytes 2.1 10^3/uL (1.2-3.4); Absolute Monocytes 0.5 10^3/uL (0.1-0.6); Absolute Neutrophils 5.6 10^3/uL (1.4-6.5); Hematocrit 37.7 % (37.0-47.0); Hemoglobin 12.9 g/dL (12.0-16.0); Mean Corp Hgb Conc. 34.2 g/dL (33.0-37.0); Mean Corpuscular Hgb 29.3 pg (27.0-31.0); Mean Corpuscular Volume 85.7 fL (81.0-99.0); Nucleated Red Blood Cells % 0 %; Platelet Count 311 10^3/uL (130-400); Red Cell Dist. Width 13.6 % (11.5-14.5); White Blood Cell Count 8.3 10^3/uL (4.8-10.8)
[2024-05-30 17:47] LABS: HCG, Serum Qualitative Screen Negative
[2024-05-30 17:50] LABS: ALT (SGPT) 37 U/L (0-35); AST (SGOT) 31 U/L (14-36); Albumin 4.4 g/dl (3.5-5.0); Alkaline Phosphatase 46 U/L (38-126); Blood Urea Nitrogen 18 mg/dl (7-17); Calcium 9.8 mg/dl (8.4-10.2); Carbon Dioxide 23 mmol/L (22-30); Chloride 105 mmol/L (98-107); Glucose 111 mg/dl (70-99); Potassium 4.1 mmol/L (3.5-5.1); Sodium 140 mmol/L (135-145); Total Bilirubin 0.4 mg/dl (0.2-1.3); Total Protein 6.8 g/dl (6.3-8.2); eGFR > 60.00
[2024-05-30 17:59] LABS: Troponin I < 0.012 ng/ml
[2024-05-30 19:57] VITALS: BP 146/91
[2024-05-30 19:58] VITALS: BMI 23.9
[2024-05-30 20:00] VITALS: BP 140/92
[2024-05-30 21:00] VITALS: BP 141/94
[2024-05-30 21:08] LABS: Troponin I < 0.012 ng/ml
--- NOTE | 2024-05-30 21:13 | ED.GENMED ---
History of Present Illness
General
Chief Complaint: Chest Pain
Source: patient
Exam Limitations: none
Time Seen by Provider: 05/30/24 21:06
Nursing documentation reviewed up to this point in time: agreed with
History of Present Illness
History of Present Illness:
43-year-old female with a past medical history of asthma, CAD status post stent who presents to the ER for evaluation after an episode of chest pain. Patient reports onset of symptoms around 3 PM while she was sitting and watching TV at rest. She
says that she had a pressure sensation in the left side of her chest. Lasted for roughly 3 to 4 hours and has now resolved she is now asymptomatic. She reports that she has had some associated nausea that actually started last night; no vomiting.
Denies any abdominal pain. She has not had any recent cough, fevers, chills. She denies any shortness of breath. Denies any significant swelling or pain in the legs. She denies any other complaints. She does report that she was at a wedding
yesterday and had a couple of drinks.
Review of Systems
Review of Systems
All Other Systems: ROS reviewed and negative except as documented in HPI and ROS
Constitutional: Denies fever or chills
EENT: Denies sore throat or runny nose
Respiratory: Denies cough or trouble breathing
Cardiac: Reports chest pain; Denies diaphoresis or palpitations
ABD/GI: Reports nausea; Denies abdominal pain, vomiting or diarrhea
: Denies flank pain
Musculoskeletal: Denies edema, neck pain or back pain
Neurological: Denies headache
Phy Exam
Physical Exam
Physical Exam:
General: Awake, alert, oriented x3; no acute distress
Head: Normocephalic, atraumatic
Eyes: Conjunctiva normal, sclera anicteric
Throat: Airway intact, handling secretions
Neck: Trachea midline, supple without meningismus
Lungs: Clear to auscultation bilaterally, no wheezing, rales, rhonchi
Heart: Regular rate and rhythm, no murmurs, gallops, or rubs
Abd: Soft, non distended, nontender
Neuro: Cranial nerves grossly intact, speech fluid
Skin: no rash
Extremities: No edema in extremities, equal pulses in all extremities
Scores
Heart Failure Risk
Heart Failure Risk Score: Not Applicable
Heart Score for Chest Pain Patients
STEMI patient?: No
History: Slightly or Non-Suspicious
ECG: Normal
Age: </= 45 years
Risk Factors: >/= 3 Risk Factors or History of CAD
Troponin: </= Normal Limit
Heart Score for Chest Pain Patients: 2
Heart Score Risk: 2.5% MACE over next 6 weeks
PERC Rule Criteria
Age <50 years: Yes
HR <100 bpm: Yes
Room air oxygen sat >94%: Yes
History of DVT or PE: No
Recent trauma or surgery: No
Hemoptysis: No
Exogenous estrogen: No
Clinical signs suggestive of DVT: No
: No
Considered low risk for PE: Yes
PERC Score: 0
PE can be excluded by PERC: Yes
Withdrawal Assessment of Alcohol
Withdrawal Assessment Completed?: Not applicable
Course
Orders/Labs/Results
Orders:
Orders
05/30/24 16:54
EKG [Electrocardiogram (*1)] Urgent
Reason for Study: Chest Pain
EKG- Treatment ONCE
05/30/24 17:04
Test Result ONCE
CR Chest - 2 Views Urgent
Comment:
Reason For Exam: CP
05/30/24 17:10
Complete Blood Count/With Diff Urgent
Comprehensive Metabolic Panel Urgent
HCG, Serum Qualitative Screen Urgent
Troponin I Urgent
05/30/24 20:19
Electrocardiogram (*1) Urgent
Reason for Study: Chest Pain
EKG- Treatment ONCE
05/30/24 20:21
EKG with chest pain [ECG as needed] As Directed
ECG as needed for:: Chest Pain
05/30/24 20:25
Troponin I Urgent
Abnormal Lab Results
05/30/24
17:10
MPV 12.0 H fL
(7.4-10.4)
BUN 18 H mg/dl
(7-17)
Glucose 111 H mg/dl
(70-99)
ALT 37 H U/L
(0-35)
05/30/24 17:10
05/30/24 17:10
Vital Signs
Initial and Last Documented VS:
Initial Vital Signs
Temp Pulse Resp BP Pulse Ox
36.6 C 66 16 164/96 97
05/30/24 16:59 05/30/24 16:59 05/30/24 16:59 05/30/24 16:59 05/30/24 16:59
Last Documented Vital Signs
Temp Pulse Resp BP Pulse Ox
36.6 C 56 18 141/94 98
05/30/24 16:59 05/30/24 21:00 05/30/24 21:00 05/30/24 21:00 05/30/24 21:00
MDM/Problems Addressed
Differential Diagnosis Includes:
GERD, angina/ACS, costochondritis
MDM/Problems Addressed:
43-year-old female with history as above presents for evaluation after an episode of chest pain lasting for a few hours. Had MD and stent in October of this year. Symptoms have resolved she now feels well. She has notably had some nausea all day
and was at a wedding yesterday and had a few drinks. She was hypertensive in triage normalized by my assessment. Rest of vitals normal. Physical exam as above. EKG sent in triage was unremarkable, initial labs sent off including a CBC and a CMP
were unremarkable. hCG negative. Troponin undetectable with interval repeat pending. Chest x-ray was negative for any acute pathology. Will continue to monitor pending repeat troponin my clinical impression is that this is likely GERD/reflux.
Repeat troponin undetectable. No interval change on EKG. Vitals have been stable. Stable for discharge, OTC PPI recommended. Follow-up with PCP as an outpatient. Spoke about return precautions all questions answered.
Chronic conditions affecting care:
CAD
Acute Exacerbation and/or Progression of Chronic Illness:
Acutely hypertensive resolved with no intervention continue to monitor but no additional antihypertensives indicated
*Radiology
Radiology exam reviewed: radiology read reviewed
*Pulse Oximetry
Patient hypoxic: no
*EKG
Interpreted by ED Provider?: Yes
Heart Rate: 67
Rate: normal
Rhythm: sinus
[place]: normal axis
Interval: normal interval
QRS Pattern: normal QRS
Ischemia: no ischemia
*Critical Care Note
Total Time (30-74mins, 75-104mins- exclusive of procedures): Not Applicable
Data Reviewed
Source: patient and records
ED Attending Note
-
Portions of this chart may have been created with voice recognition software.� Occasional wrong word or��sound alike� substitutions may have occurred due to the inherent limitations of voice recognition software.
Discharge Plan
Departure
Patient with high blood pressure during this ER visit?: Yes
Discharge Problem:
Chest pain
Instructions: Chest Pain PCP Follow Up
Prescriptions:
No Action
amlodipine 5 mg Tablet
5 mg PO HS
sertraline 50 mg Tablet
50 mg PO HS
Brilinta 90 mg Tablet
90 mg PO BID Qty: 60 2RF
aspirin [Children's Aspirin] 81 mg Tablet,Chewable
81 mg PO DAILY Qty: 1 0RF
metoprolol succinate 25 mg Tablet Extended Release 24 Hr
25 mg PO DAILY Qty: 30 2RF
atorvastatin 80 mg Tablet
80 mg PO QPM
melatonin 10 mg Tablet,Chewable
10 mg PO HSPRN PRN (Reason: sleep)
fexofenadine [Fabiola] 180 mg Tablet
180 mg PO DAILY
fluticasone propionate [Flonase] 50 mcg/actuation [place],Suspension
1 spray INTRANASAL DAILY
Referrals:
UNKNOWN - PT DOES,NOT KNOW [Family Provider] -
Activity Restrictions/Additional Instructions:
Thank you for visiting the Emergency Department at [facility].
1. Please schedule a follow up appointment as directed. Call first thing tomorrow morning to make an appointment.
2. If indicated, please take your medications as instructed and indicated on discharge paperwork.
3. If any of your symptoms do not improve, or persist, or become more severe within 6-12 hours, please return to the emergency department for further care.
4. Please return to the emergency department if you develop a headache, neck pain/stiffness, fever greater than 100.4F, chest pain, shortness of breath, persistent nausea, vomiting, slurred speech, difficulty walking, numbness/tingling, weakness,
signs of infection or any other symptoms that are worrisome to you.
Please call [phone] if you have any questions.
Interventions
Interventions:
*Risk Screen - Suicide Last Done: 05/30/24 19:58
*General Assessment Last Done: 05/30/24 19:58
*Neglect/Abuse Screening Last Done: 05/30/24 19:58
*ED COVID-19 Vaccine History Last Done: 05/30/24 19:58
ED- Cardiac Assessment Last Done: 05/30/24 19:51
Discharge Date and Time
Print Language: MALIAN
[2024-05-30 21:51] LABS: Lipase 143 U/L (23-300)
[2024-05-30 22:00] VITALS: BP 146/92
== END 2024-05-30 22:27 | disposition home or self-care (01) ==
LOC: EMR 16:53
PROVIDERS: Physician Assistant; EMERGENCY PHYSICIAN Emergency Medicine; FAMILY PHYSICIAN Family Medicine
DX: R07.89 Other chest pain (principal); I25.10 Atherosclerotic heart disease of native coronary artery without angina pectoris; J45.909 Unspecified asthma, uncomplicated; Z95.5 Presence of coronary angioplasty implant and graft
CPT/HCPCS: 99283; 71046; 80053; 83690; 84484; 84703; 85025; 93005

== ENCOUNTER 2024-06-17 12:02 | Emergency (ER) | payer BC, SELFPAY ==
[2024-06-17] VITALS (9 sets, daily range): BP systolic 130–146; BP diastolic 82–94; BMI 24.5
[2024-06-17 12:19] LABS: % Basophils 0.8 % (0-2); % Eosinophils 0.8 % (0-6); % Immature Granulocytes 0.5 % (0-0.5); % Lymphocytes 25.2 % (20.5-51.1); % Monocytes 8.2 % (1.7-9.3); % Neutrophils 64.5 % (42.2-75.2); Absolute Basophils 0.1 10^3/uL (0-0.2); Absolute Eosinophils 0.1 10^3/uL (0-0.7); Absolute Lymphocytes 1.9 10^3/uL (1.2-3.4); Absolute Monocytes 0.6 10^3/uL (0.1-0.6); Absolute Neutrophils 4.9 10^3/uL (1.4-6.5); Hemoglobin 13.4 g/dL (12.0-16.0); Mean Corp Hgb Conc. 33.5 g/dL (33.0-37.0); Mean Corpuscular Hgb 29.3 pg (27.0-31.0); Mean Corpuscular Volume 87.3 fL (81.0-99.0); Mean Platelet Volume 12.1 fL (7.4-10.4); Nucleated Red Blood Cells % 0 %; Platelet Count 290 10^3/uL (130-400); Red Blood Cell Count 4.58 10^6/uL (4.20-5.40); Red Cell Dist. Width 13.9 % (11.5-14.5); White Blood Cell Count 7.5 10^3/uL (4.8-10.8)
[2024-06-17 12:27] LABS: INR 0.94; PT 12.4 Sec (11.4-14.6)
[2024-06-17 12:33] LABS: ALT (SGPT) 42 U/L (0-35); AST (SGOT) 33 U/L (14-36); Albumin 4.6 g/dl (3.5-5.0); Alkaline Phosphatase 44 U/L (38-126); Blood Urea Nitrogen 17 mg/dl (7-17); Calcium 9.6 mg/dl (8.4-10.2); Carbon Dioxide 23 mmol/L (22-30); Chloride 106 mmol/L (98-107); Glucose 99 mg/dl (70-99); Potassium 4.4 mmol/L (3.5-5.1); Sodium 141 mmol/L (135-145); Total Bilirubin 0.3 mg/dl (0.2-1.3); eGFR > 60.00
[2024-06-17 12:41] LABS: Troponin I < 0.012 ng/ml
--- NOTE | 2024-06-17 14:31 | EDRN ---
Pt states she arrives for chest pain that is intermittent, across her upper chest and half way down sternum towards abd. Pt states pain now is a 6/10. Pain at highest was 7/10. Pt had Non STEMI w/ stent placement in Oct 2023. Pain started off and on
over this past week. Pt was in ER on 05/30/24 w/ same chest pain and had 2 normal troponins and was informed pain heart burn probably. Pt having [place] intermittently as well. Pt has been having intermittent irregular pulse over past week but not yet
today. Pt unable to do he usual cross fit workouts this week.
--- NOTE | 2024-06-17 15:06 | ED.GENMED ---
History of Present Illness
General
Chief Complaint: Chest Pain
Source: patient and physician
Exam Limitations: none
Time Seen by Provider: 06/17/24 15:02
Nursing documentation reviewed up to this point in time: agreed with
History of Present Illness
History of Present Illness:
43 yo female presents to the emergency department c/o chest pain, and shortness of breath with exertion. She has had chest pain for about a week. She had an [place] in October.
Past History
Past History
ED Past Medical History: Asthma, CAD and [place]
ED Past Surgical History: and Other (Rhinoplasty, lithotripsy)
Social History
Tobacco: Non-smoker
Alcohol: None
Drug: None
Personal:
Living: with family
Employment: Employed
Review of Systems
Review of Systems
Allergies reviewed?: Yes
All Other Systems: Not applicable
Constitutional: Reports no symptoms
EENT: Reports no symptoms
Respiratory: Reports trouble breathing
Cardiac: Reports chest pain
ABD/GI: Reports no symptoms
: Reports no symptoms
Musculoskeletal: Reports no symptoms
Skin: Reports no symptoms
Neurological: Reports no symptoms
Endocrine: Reports no symptoms
Hematologic/Lymphatic: Reports no symptoms
Psychiatric: Reports no symptoms
Phy Exam
Physical Exam
Physical Exam:
Physical Exam
General: no apparent distress, not acutely ill
Neck: supple. no meningeal signs. normal posterior pharynx
Heart: s1/s2 bradycardia, no murmur. equal radial
pulses.
HEENT: Pupils equal round reactive to light, EOMI
Lungs: no acute respiratory distress. clear bilaterally
Abdomen: normal bowel sounds. not tender. no CVAT
Neuro: alert and oriented. no focal neurological deficits cranial nerves II through XII intact
Skin: no rash
Psychiatric: well kept. interactive and cooperative
Extremities: no edema. no calf tenderness. negative homans. good distal pulses
Scores
Heart Score for Chest Pain Patients
STEMI patient?: No
History: Moderately Suspicious
ECG: Normal
Age: </= 45 years
Risk Factors: >/= 3 Risk Factors or History of CAD
Troponin: </= Normal Limit
Heart Score for Chest Pain Patients: 3
Heart Score Risk: 2.5% MACE over next 6 weeks
Course
Orders/Labs/Results
Orders:
Orders
06/17/24 12:03
Electrocardiogram (*1) Urgent
Reason for Study: Chest Pain
EKG- Treatment ONCE
06/17/24 12:07
Complete Blood Count/With Diff Urgent
Comprehensive Metabolic Panel Urgent
Prothrombin Time Urgent
Troponin I Urgent
06/17/24 15:21
Nitroglycerin Sublingual [Nitrostat (Sublingual)] 0.4 mg SL NOW STA
06/17/24 16:53
D-Dimer Urgent
Troponin I Urgent
Abnormal Lab Results
06/17/24
12:07
MPV 12.1 H fL
(7.4-10.4)
ALT 42 H U/L
(0-35)
06/17/24 12:07
06/17/24 12:07
Vital Signs
Initial and Last Documented VS:
Initial Vital Signs
Temp Pulse Resp BP Pulse Ox
98.1 F 62 16 131/89 98
06/17/24 12:25 06/17/24 12:25 06/17/24 12:25 06/17/24 12:25 06/17/24 12:25
Last Documented Vital Signs
Temp Pulse Resp BP Pulse Ox
98.1 F 70 14 139/94 96
06/17/24 12:25 06/17/24 18:20 06/17/24 18:20 06/17/24 18:20 06/17/24 18:20
MDM/Problems Addressed
Differential Diagnosis Includes:
ACS, PE
MDM/Problems Addressed:
43-year-old male with chest pain, unclear etiology. Possibly stable angina. Patient seen by cardiology, who recommends discharge after negative repeat troponin. Patient will follow-up for stress test.
Chronic conditions affecting care: HTN and CAD
*Pulse Oximetry
Patient hypoxic: no
*EKG
Interpreted by ED Provider?: Yes
EKG Intrepretation Date: 06/17/24
EKG Intrepretation Time: 12:10
Interpretation: abnormal
Comparison EKG: no changes
Heart Rate: 58
Rate: bradycardiac
Rhythm: sinus
[place]: normal axis
Interval: normal interval
QRS Pattern: normal QRS
Ischemia: no ischemia
*Chlorination Operator Interpretation
Rate: Chlorination Operator- N/A
*Critical Care Note
Total Time (30-74mins, 75-104mins- exclusive of procedures): Not Applicable
Data Reviewed
Review of Other/Old Records Reveals: Operative Reports
Source: records (RCA stent placed 10/08/23)
Patient Management
Social determinants of health affecting care: Strong social support
Discussion with other providers: Detonator Assembler (Cardiology Dr. Perez)
Escalation/DeEscalation of care consider admission/obs:
Admit not indicated
ED Attending Note
-
Portions of this chart may have been created with voice recognition software.� Occasional wrong word or��sound alike� substitutions may have occurred due to the inherent limitations of voice recognition software.
Discharge Plan
Departure
Patient Disposition: Home (Routine Discharge)
Date of Disposition: 06/17/24
Time of Disposition: 17:38
Patient with high blood pressure during this ER visit?: Yes
Condition: Good
Discharge Problem:
Chest pain
Instructions: BLOOD PRESSURE, Chest Pain
Prescriptions:
No Action
amlodipine 5 mg Tablet
5 mg PO HS
sertraline 50 mg Tablet
50 mg PO HS
Brilinta 90 mg Tablet
90 mg PO BID Qty: 60 2RF
aspirin [Children's Aspirin] 81 mg Tablet,Chewable
81 mg PO DAILY Qty: 1 0RF
metoprolol succinate 25 mg Tablet Extended Release 24 Hr
25 mg PO DAILY Qty: 30 2RF
atorvastatin 80 mg Tablet
80 mg PO QPM
melatonin 10 mg Tablet,Chewable
10 mg PO HSPRN PRN (Reason: sleep)
fexofenadine [Fabiola] 180 mg Tablet
180 mg PO DAILY
fluticasone propionate [Flonase] 50 mcg/actuation [place],Suspension
1 spray INTRANASAL DAILY
Referrals:
Edyta Antonio DO [Family Provider] -
Naila Melo PA-C [Specified Professional Personl] - 07/01/24 3:00 pm (You have a cardiology follow up appointment at the [place] office with Dr. Dejesus's physician programs assistant, Naila. Please call with questions. )
Activity Restrictions/Additional Instructions:
You are scheduled for an exercise nuclear stress test 06/23/24 @12:20PM at [facility]. Please refer to instruction packet
Interventions
Interventions:
*Risk Screen - Suicide Last Done: 06/17/24 12:25
*General Assessment Last Done: 06/17/24 12:25
*Neglect/Abuse Screening Last Done: 06/17/24 12:29
ED- Fall Risk Assessment Last Done: 06/17/24 14:38
*ED COVID-19 Vaccine History Last Done: 06/17/24 14:37
*Nursing Disposition Last Done: 06/17/24 18:20
ED- Cardiac Assessment Last Done: 06/17/24 14:40
Discharge Date and Time
Discharge Date/Time: 06/17/24 18:20
Print Language: SERBIAN
--- NOTE | 2024-06-17 16:03 | CON.CAR ---
Addendum entered and electronically signed by Esteban Perez DO 06/17/24 17:54:
I saw and examined the patient.
The Adjuster Leader's note was reviewed and I agree with the note.
Comment:
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 Patient with residual disease as noted on [facility] at that time. Patient presenting with CP (different to prior DC) occurring at rest or with exertion;
unclear aggravating or alleviating factors. Patient reports that she routinely performs cross fit without CP or limitation but noted more recent SOB. She notes that she performed cross fit HIIT work-out today without the CP. She noted the CP
occurring later in the day at rest with waxing and waning characteristics occurring over the last week. She reports adherence to medications. Patient had similar eval on 05/30/2024 and was recommended outpatient follow-up but did not make appointment
as recommended from ED discharge.
Troponin negative x 1
EKG SR without STT changes
Telemetry SR no arrhythmias or pauses
Improving Symptoms
If second troponin negative and improved pain, can safely discharge. Will recommend outpatient stress testing for reassessment of CP and if residual disease is component to chest pain given atypical nature
Follow-up scheduled with our office
Continue remaining medical therapy
Original Note:
Consultation
Consultation Request
Date/Time Consultation Performed: 06/17/24
Requesting Provider: Dr. Horne
Performing Provider: Thais Alfonso PA-C for Dr. Perez
Reason for Consultation: CP
Medical History
-
Chief Complaint: CP
History of Present Illness:
Patient is a 43 yo F with significant family history of premature CAD (genetic testing reportedly negative) with DC resulting in RCA PCI 10/2023 with residual moderate circ and 1st diagonal disease who presents to for evaluation of chest
discomfort. States the pain is different than what she had in setting of her DC in October - pain was severe and centrally located. This pain has been waxing and waning over the last ~2 weeks and is across B/L chest. No positional changes or
aggravating/alleviating factors. Reports she did cross fit this morning without chest discomfort, however did feel more winded than she previously felt like she would be for a similar work out. Also reports some SOB while in [employer] [place]. She
had ER visit for similar symptoms 05/30/24, with negative trops x2, diagnosed with possible GERD, however had not yet followed up with cardiology. Reports compliance with asa, brilinta, and other cardiac medications. Initial trop negative x1.
PMH:
CAD
DC s/p mid RCA�2.25 x 18 mm Xience stent 10/08/2023
Hypertension
Asthma
Anxiety
ADHD
Family history of premature heart disease
Past Medical History
Past Medical History: Other (in HPI)
Social History
Tobacco: Non-Smoker
Alcohol: Occasional
Personal:
Living: With Family
Employment: Employed (nurse)
Family History
Family History: Early CAD
Allergies / Home Medications
Allergy/AdvReac Type Severity Reaction Status Date / Time
No Known Allergies Allergy Verified 10/07/23 10:37
�Medication �Instructions �Recorded �Confirmed �Type
amlodipine 5 mg tablet 5 mg PO HS Blood Pressure 10/07/23 05/30/24 History
sertraline 50 mg tablet 50 mg PO HS Mental Health/Anxiety 10/07/23 05/30/24 History
aspirin 81 mg chewable tablet 81 mg PO DAILY Blood clot 10/09/23 05/30/24 Rx
(Children's Aspirin) prevention/tx #1 tab
metoprolol succinate 25 mg 25 mg PO DAILY Heart 10/09/23 05/30/24 Rx
tablet,extended release 24 hr disease/condition #30 tabs
ticagrelor 90 mg tablet (Brilinta) 90 mg PO BID Blood clot 10/09/23 05/30/24 Rx
prevention/tx #60 tabs
atorvastatin 80 mg tablet 80 mg PO QPM 05/30/24 05/30/24 History
fexofenadine 180 mg tablet 180 mg PO DAILY 05/30/24 05/30/24 History
fluticasone propionate 50 1 spray intranasal DAILY 05/30/24 05/30/24 History
mcg/actuation nasal
spray,suspension
melatonin 10 mg chewable tablet 10 mg PO HSPRN PRN sleep 05/30/24 05/30/24 History
Review of Systems
-
History Source: Patient
All other systems: Negative unless noted
Physical Exam
Vital Signs
Temp Pulse Resp BP Pulse Ox
98.1 F 59 12 130/82 100
06/17/24 12:25 06/17/24 14:35 06/17/24 14:35 06/17/24 14:00 06/17/24 14:35
Lab Results
06/17/24 12:07
06/17/24 12:07
Troponin I < 0.012 ng/ml 06/17/24 12:07
Physical Exam
General: No Apparent Distress and Comfortable
HEENT: Normocephalic, Anicteric and Moist Mucous Membranes
Respiratory: Clear and Non Labored Respirations
Cardiac: S1/S2 and Regular Rhythm
GI: Soft, Non Tender, Non Distended and Normal Bowel Sounds
Musculoskeletal: No Clubbing, No Cyanosis and No Edema
Skin: Warm and Dry
Neuro: AO x 3
Impression / Plan
-
Primary Environmental Engineering Technician: Dr. Dejesus
Assessment:
Presentation with CP
Negative troponin x1
ER visit for CP 05/30/24
CAD
DC s/p mid RCA�2.25 x 18 mm Xience stent 10/08/2023
residual moderate CAD of 1st diag and circ
Hypertension
Asthma
Anxiety
ADHD
Family history of premature heart disease
Echo 10/08/2023: EF 55 to 60%. Normal regional wall motion. No significant valvular disease.
Cardiac cath 10/08/2023: LM: Normal. LAD: LI, 60% proximal D1 stenosis. Circumflex: 50% distal stenosis between [address] RCA: 95% mid stenosis s/p�2.25 x 18 mm Xience stent
Plan:
-Patient had negative cardiac work up for chest pain during ER visit 05/30/24, and now presents back with continued pain. waxing and waning. able to complete cross fit this AM. remains with pain at present which she rates a 3-12/08
-trop negative x1.
-ER to trial SL nitro x1. would also give tylenol (staged to determine which med is of benefit)
-EKG without acute ST abnormalities
-CXR from 05/30 without acute processes
-last echo from 10/2023 with normal EF
-chest pain appears atypical for cardiac etiology however as has known CAD, await 2nd trop. if also negative would plan to DC with plan for OP stress testing next week and subsequent cardiac follow up
-continue asa, brilinta, statin, toprol, norvasc
-d/w ER physician
Data Reviewed
-
EKG: Tracing Personally Visualized and interpreted
Radiology: Report Reviewed by me
Medical Tests (Nuc Med, Echo etc): Report Reviewed by me
Labs: Labs Reviewed by me
Old Records: Reviewed
[2024-06-17] MEDS: NITROSTAT (SUBLINGUAL) 0.4 MG SL (16:53)
[2024-06-17 17:32] LABS: Troponin I < 0.012 ng/ml
== END 2024-06-17 18:20 | disposition home or self-care (01) ==
LOC: EMR 12:02
PROVIDERS: Emergency Medicine; EMERGENCY PHYSICIAN Emergency Medicine; FAMILY PHYSICIAN Family Medicine; OTHER PHYSICIAN Internal Medicine Cardiovascular Disease
DX: R07.9 Chest pain, unspecified (principal); I10 Essential (primary) hypertension; I25.10 Atherosclerotic heart disease of native coronary artery without angina pectoris; I25.2 Old myocardial infarction; Z95.5 Presence of coronary angioplasty implant and graft; J45.909 Unspecified asthma, uncomplicated
CPT/HCPCS: 99284; 80053; 84484; 85025; 85379; 85610; 93005

== ENCOUNTER → 2024-06-23 12:02 | Outpatient (REF) | payer BC, SELFPAY | LOC: DHCBC/DCA 12:02 | PROVIDERS: ATTENDING PHYSICIAN Internal Medicine Cardiovascular Disease; FAMILY PHYSICIAN Family Medicine | DX: R07.9 Chest pain, unspecified (principal); R06.09 Other forms of dyspnea; I25.10 Atherosclerotic heart disease of native coronary artery without angina pectoris | CPT/HCPCS: 78452; 93017; A9500 ==